=== PATIENT | female | born 1945 | race Caucasian/White ===

== ENCOUNTER 2017-06-30 09:08 | Outpatient (CLI) | payer BC | END 2017-06-30 09:09 | disposition home or self-care (01) | LOC: BICMAMMO 09:08 | PROVIDERS: ATTEND Family Medicine | DX: Z12.31 Encounter for screening mammogram for malignant neoplasm of breast (principal); Z80.3 Family history of malignant neoplasm of breast | CPT/HCPCS: 77063; 77067 ==

== ENCOUNTER 2018-07-09 13:43 | Outpatient (CLI) | payer BC ==
--- NOTE | 2018-07-09 18:23 | MMO ---
Bilateral MAMMO Bilat Screen DDI+FANI. CLINICAL HISTORY: Patient is 73 years old and is seen for screening. The patient has the following family history of breast cancer: mother, at age 75. The patient has no personal history of cancer. VIEWS: The views performed were: bilateral craniocaudal with tomosynthesis and bilateral mediolateral oblique with tomosynthesis. FILMS COMPARED: The present examination has been compared to prior imaging studies performed at [facility] on 06/30/2017, and at [facility] on 11/02/2010, 11/08/2011, 01/13/2013, 04/08/2014, 04/25/2015 and 05/17/2016. MAMMOGRAM FINDINGS: There are scattered fibroglandular densities. There are no suspicious masses, calcifications or areas of architectural distortion. IMPRESSION: THERE IS NO MAMMOGRAPHIC EVIDENCE OF MALIGNANCY. A ROUTINE FOLLOW-UP MAMMOGRAM IN 1 YEAR IS RECOMMENDED. THE RESULTS OF THIS EXAM WERE SENT TO THE PATIENT. ACR BI-RADS Category 1 - Negative MAMMOGRAPHY NOTE: 1. A negative mammogram report should not delay a biopsy if a dominant of clinically suspicious mass is present. 2. Approximately 10% to 15% of breast cancers are not detected by mammography. 3. Adenosis and dense breasts may obscure an underlying neoplasm.
== END 2018-07-09 13:44 | disposition home or self-care (01) ==
LOC: BICMAMMO 13:43
PROVIDERS: ATTEND Family Medicine
DX: Z12.31 Encounter for screening mammogram for malignant neoplasm of breast (principal); Z80.3 Family history of malignant neoplasm of breast
CPT/HCPCS: 77063; 77067

== ENCOUNTER 2019-03-14 17:47 | Emergency (ER) | payer BC ==
[~2019-03-14 17:47] MED LIST: Iopamidol 300 61% 100 ML VIAL FS ONE
--- NOTE | 2019-03-14 18:30 | RAD ---
PORTABLE CHEST ONE VIEW: Date: 03-14-19 Time: 6:12 p.m. History: Syncope. Nausea. Vomiting. FINDINGS: The heart size is normal. The lungs are expanded without focal areas of consolidation, pneumothoraces , or pleural effusions. There are tiny calcified granulomas. There is evidence of old granulomatous d isease. IMPRESSION: No acute process. POS: [facility]
[2019-03-14 18:47] LABS: Hemoglobin 13.3 g/dL (12.0-16.0); Mean Corpuscular HGB CONC 32.1 g/dL (32.0-36.0); Mean Corpuscular Hemoglobin 28.3 pg (27.0-31.0); Mean Corpuscular Volume 88.1 fL (78.0-98.0); Platelet Count 317 thou/uL (130-400); RBC Distribution Width 12.8 % (11.5-14.5); Red Blood Cell (RBC) Count 4.71 mill/uL (4.20-5.40); White Blood Cell (WBC) Count 21.7 thou/uL (4.8-10.8)
[2019-03-14 18:58] LABS: Band 2 % (5-11); Eosinophils 2 % (0-10); Lymphocytes 8 % (21-51); MDiff Complete? YES; Monocytes 5 % (0-10); Neutrophil 82 % (42-75); Platelet Morphology Comment Appears Adequate; RBC Morphology Normal
[2019-03-14 19:00] LABS: ALT (SGPT) 13 U/L (8-55); AST (SGOT) 18 U/L (5-34); Alkaline Phosphatase 143 U/L (40-110); Anion Gap 20 mmol/L (10-20); BUN (Urea Nitrogen) 21 mg/dL (9.8-20.1); Bilirubin, Total 0.5 mg/dL (0.2-1.2); Calc. Creatinine Clearance 0 mL/min (70-130); Carbon Dioxide 26 mmol/L (23-31); Chloride 99 mmol/L (98-107); Estimated GFR-MDRD 37; Globulin 2.5 g/dL (2.4-3.5); Glucose 122 mg/dL (83-110); Potassium 4.5 mmol/L (3.5-5.1); Protein, Total 6.5 g/dL (6.0-8.3); Sodium 140 mmol/L (136-145)
[2019-03-14 19:14] LABS: Bilirubin Moderate (Negative); Blood, Urine Trace (Negative); Glucose, Urine (Dipstick) Negative (Negative); Leukocyte Negative (Negative); Nitrite Negative (Negative); Protein, Urine (Dipstick) 30 mg/dL (Neg-Trace)
[2019-03-14 19:15] LABS: Clarity Hazy (Clear)
[2019-03-14 19:17] LABS: Bacteria/HPF 1+ HPF (None Seen); RBC/HPF 0-3 HPF (0-3); WBC/HPF None Seen HPF (0-3)
--- NOTE | 2019-03-14 19:32 | CT ---
HEAD CT WITHOUT CONTRAST: History: Syncope. Nausea, vomiting, fatigue. Trauma. FINDINGS: No parenchymal hemorrhage. No extraaxial hematoma. No midline shift. Basilar cisterns are patent. Brain volume is age appropriate. Cortical bates white matter differentiation is preserved. No hydrocephalus. There is a left periorbital/temporal scalp hematoma. Visualized orbits are unremarkable. Adequate aeration of the visualized paranasal sinuses and mastoid air cells. There does not appear to be a calvarial or lateral left orbital wall fracture. IMPRESSION: 1. Left periorbital/left temporal scalp hematoma. 2. No intracranial post-traumatic sequellae. POS: [facility]
--- NOTE | 2019-03-14 21:02 | CT ---
ABDOMEN CT WITH CONTRAST PELVIC CT WITH CONTRAST: History: Nausea, vomiting. Comparison: None. FINDINGS: ABDOMEN CT: Lung bases are clear. Normal heart size. Visualized aorta is of normal caliber. No periaortic fat stranding. Gallbladder is surgically absent. Portal vein is patent. Liver, spleen, pancreas, and adrenal glands have appropriate attenuation and enhancement. No gastric hepatic, retrocrural or periportal lymphadenopathy. Symmetric enhancement of the kidneys. Bilaterally, no obstructive uropathy. No mesenteric mass, free air, or free fluid. There is evidence of mild nonspecific mesenteric fat str anding along with enlarged mesenteric lymph nodes. Land Appraiser enlarged lymph nodes in the left lo wer quadrant measure 0.7 x 0.6 cm. Correlate for mesenteric lymphadenitis. Limited evaluation of the alimentary canal by the lack of oral contrast. There are some fluid filled loops of small bowel along with mildly distended small bowel loops predominately in the left hemiabdo men. Correlate for early or partial obstructive process versus ileus. Ileocecal junction is unremarka ble. Appendix is not appreciated. No inflammation of the thecal apex. There is fluid attenuation thro ughout the right hemicolon. Correlate for possible colitis. Scattered diverticulum in the sigmoid col on. No evidence of diverticulitis. Fluid attenuation is noted of the mid to distal sigmoid colon. CT PELVIS: Surgically absent uterus. No pelvic mass, lymphadenopathy, or free air. Trace amount of free fluid in the pelvis. There are no lytic or blastic lesions in the osseous structures. IMPRESSION: 1. Correlate for ileus or partial small bowel obstruction. Continued surveillance is recommended. 2. Fluid attenuation in the colon as described above. The possibility of colitis is raised. 3. Stranding of the abdominal mesentery with enlarged lymph nodes. Correlate for mesenteric lymphaden itis. POS: [facility]
== END 2019-03-14 20:53 | disposition home or self-care (01) ==
LOC: SCSER 17:47
DX: E86.0 Dehydration (principal); R55 Syncope and collapse; K52.9 Noninfective gastroenteritis and colitis, unspecified; E03.9 Hypothyroidism, unspecified; I10 Essential (primary) hypertension; Z79.899 Other long term (current) drug therapy
CPT/HCPCS: 70450; 71045; 74177; 80053; 81003; 81015; 84484; 85025; 93005; Q9967

== ENCOUNTER 2019-06-08 21:15 | Observation (INO) | payer BC ==
[2019-06-08 21:47] LABS: #Basophils 0.1 thou/uL (0.0-0.2); #Lymphocytes 1.8 thou/uL (1.20-3.40); #Monocytes 0.8 thou/uL (0.11-0.59); #Neutrophils 7.9 thou/uL (1.40-6.50); %Basophils 0.8 % (0.0-1.0); %Eosinophils 0.4 % (0.0-10.0); %Lymphocytes 16.6 % (21.0-51.0); %Monocytes 7.4 % (0.0-10.0); %Neutrophils 74.8 % (42.0-75.0); Hemoglobin 11.5 g/dL (12.0-16.0); Mean Corpuscular HGB CONC 32.8 g/dL (32.0-36.0); Mean Corpuscular Hemoglobin 29.4 pg (27.0-31.0); Mean Corpuscular Volume 89.5 fL (78.0-98.0); Mean Platelet Volume 7.3 fL (7.4-10.4); Platelet Count 257 thou/uL (130-400); RBC Distribution Width 12.8 % (11.5-14.5); Red Blood Cell (RBC) Count 3.92 mill/uL (4.20-5.40); White Blood Cell (WBC) Count 10.6 thou/uL (4.8-10.8)
[2019-06-08 21:59] LABS: Bacteria/HPF None Seen HPF (None Seen); Bilirubin Negative (Negative); Blood, Urine Trace (Negative); Clarity Clear (Clear); Glucose, Urine (Dipstick) Normal (Negative); Leukocyte Negative Leu/uL (Negative); Nitrite Negative (Negative); Protein, Urine (Dipstick) Negative (Neg-Trace); RBC/HPF 0-3 HPF (0-3); Squamous Epithelial None Seen HPF (0-3); Urobilinogen Normal mg/dL (Less than 2); WBC/HPF 0-3 HPF (0-3)
[2019-06-08 22:10] LABS: ALT (SGPT) 10 U/L (8-55); AST (SGOT) 14 U/L (5-34); Albumin 4.2 g/dL (3.4-4.8); Alkaline Phosphatase 88 U/L (40-110); Anion Gap 12 mmol/L (10-20); BUN (Urea Nitrogen) 20 mg/dL (9.8-20.1); Bilirubin, Total 0.2 mg/dL (0.2-1.2); Calc. Creatinine Clearance 0 mL/min (70-130); Calcium 8.1 mg/dL (7.8-10.44); Carbon Dioxide 27 mmol/L (23-31); Chloride 101 mmol/L (98-107); Estimated GFR-MDRD 43; Globulin 2.7 g/dL (2.4-3.5); Glucose 114 mg/dL (83-110); Lipase 20 U/L (8-78); Potassium 3.6 mmol/L (3.5-5.1); Protein, Total 6.9 g/dL (6.0-8.3); Sodium 136 mmol/L (136-145)
--- NOTE | 2019-06-08 22:27 | RAD ---
Chest AP view INDICATION: Chest pain COMPARISON: March 14, 2019 FINDINGS: Lungs:The lungs are clear. Stable calcified granuloma in the right lower lobe. Cardiac silhouette:The cardiomediastinal silhouette appears within normal limits. Pulmonary vasculature:Normal Pleural spaces:No pleural effusion or pneumothorax is demonstrated. Upper abdomen:No abnormality seen. Osseous structures: No acute osseous abnormality. Additional findings:None. IMPRESSION: No acute cardiopulmonary abnormality.
[2019-06-08] MEDS ORDERED: Aspirin Chewable 81 MG TAB ONE (23:25)
[2019-06-09] MEDS ORDERED: Calcium Carbonate 500 MG ChewTAB PO PRN (01:38)
[2019-06-09] MEDS ORDERED: Acetaminophen 325 MG TAB PO PRN (01:38)
[2019-06-09 01:54] LABS: Troponin I Less than 0.010 ng/mL (< 0.028)
[2019-06-09] MEDS ORDERED: Temazepam 15 MG CAP PO PRN (01:55)
--- NOTE | 2019-06-09 02:00 | PDOC.FPRHP ---
- History of Present Illness Chief Complaint: chest burning sensation History of Present Illness: 74yo CF with h/o HTN presented to ED with cc of burning sensation over chest and L arm. Pt states she has chronic cough and treated for bronchitis with symbicort and phenergan with codeine prn. She took her symbicort and cough syrup today and immediately had a tingling and hot sensation on her tongue. This then moved down into her chest. The sensation then turned into a cold feeling that moved down her L arm. No associated n/v, dyspnea, fever/chills. Does not describe the sensation as pain. Pt states she had similar episode in Feb 2019 after taking some medications, at that time had nausea and passed out. Was evaluated at the [facility] with Head CT, EKG , and determine to have syncopal event and discharged from ED. Currently denies any return of sxs. Total sxs lasted approx 30 min. ED Course: Given ASA 324. 1L NS. Admitted for ACS r/o - Allergies/Adverse Reactions Allergies Allergy/AdvReac Type Severity Reaction Status Date / Time naproxen Allergy Verified 06/09/19 01:19 Sulfa (Sulfonamide Allergy Verified 06/09/19 01:19 Antibiotics) - Home Medications Medication Instructions Recorded Confirmed Type Amlodipine [Norvasc] 10 mg PO DAILY 06/09/19 06/09/19 History Ascorbic Acid [Vitamin C] 500 mg PO DAILY 30 Days #30 tab 06/09/19 Rx Aspirin [Ecotrin Regular Strength] 325 mg PO DAILY 30 Days #30 tab 06/09/19 Rx Atorvastatin Calcium [Lipitor] 20 mg PO HS 30 Days #30 tab 06/09/19 Rx Benzonatate [Tessalon] 100 mg PO TID PRN 10 Days #30 cap 06/09/19 Rx Budesonide-Formoterol [Symbicort 1 puff INH BID PRN 06/09/19 06/09/19 History 80-4.5] Cetirizine HCl [Zyrtec] 10 mg PO DAILY 06/09/19 06/09/19 History Cholecalciferol (Vitamin D3) 2,000 unit PO DAILY 06/09/19 06/09/19 History [Vitamin D3] Ferrous Sulfate [Feosol] 325 mg PO QAM-WM 30 Days #30 tab 06/09/19 Rx Fluticasone Propionate [Flonase 1 spray EA NARE DAILY 06/09/19 06/09/19 History Nasal [place]] Levothyroxine Sodium [Synthroid] 88 mcg PO DAILY 06/09/19 06/09/19 History Lisinopril 20 mg PO BID 06/09/19 06/09/19 History Promethazine HCl/Codeine 5 ml PO TID PRN 06/09/19 06/09/19 History [Prometh-Codein 6.25-10 mg/5 ml] Raloxifene HCl 60 mg PO DAILY 06/09/19 06/09/19 History Temazepam [Restoril] 15 mg PO HS PRN 06/09/19 06/09/19 History - History PMHx: HTN, Michael's PSHx: Subtotal thyroidectomy, hyst, coty, appey, lumpectomy of R breast - benign FHx: Mother of GA at 83, father with DM Social: , of GA. No EtOH, illicits, tob. Lives alone. - Review of Systems General: denies: fever/chills, weight/appetite/sleep changes, night sweats Eyes: denies: vision changes ENT: denies: nasal congestion, rhinorrhea Respiratory: reports: cough (chronic). denies: congestion, shortness of breath Cardiovascular: reports: other (per HPI). denies: chest pain, palpitation, edema Gastrointestinal: denies: nausea, vomiting, diarrhea, constipation, abdominal pain Genitourinary: denies: incontinence, dysuria Skin: denies: rashes Musculoskeletal: denies: pain Neurological: denies: numbness, syncope - Vital signs BP: 140/68 HR: 75 RR: 18 Tmax: 97.7 Pox: 98% on RA Wt: 78kg - Physical Exam Constitutional: NAD, awake, alert and oriented, well developed HEENT: PERRLA, EOMI, conjunctiva clear, MMM Neck: supple, trachea midline Heart: RRR, normal S1/S2, pulses present, no edema, other (1/6 TEETEE best heard right upper sternal border) Lungs: CTAB, no respiratory distress, good air movement, no rales/rhonchi, no wheezing Abdomen: soft, non-tender, bowel sounds present, no masses/distention Musculoskeletal: normal structure Neurological: no focal deficit Skin: no rash/lesions Psychiatric: normal mood and affect, good judgment and insight, intact recent and remote memory FMR H&P: Results - Labs Result Diagrams: 06/08/19 21:45 06/09/19 04:39 Lab results: WBC 10.6 thou/uL (4.8-10.8) 06/08/19 21:45 Hgb 11.5 g/dL (12.0-16.0) L 06/08/19 21:45 Hct 35.1 % (36.0-47.0) L 06/08/19 21:45 MCV 89.5 fL (78.0-98.0) 06/08/19 21:45 Plt Count 257 thou/uL (130-400) 06/08/19 21:45 Neutrophils % 74.8 % (42.0-75.0) 06/08/19 21:45 Sodium 136 mmol/L (136-145) 06/08/19 21:37 Potassium 3.6 mmol/L (3.5-5.1) 06/08/19 21:37 Chloride 101 mmol/L (98-107) 06/08/19 21:37 Carbon Dioxide 27 mmol/L (23-31) 06/08/19 21:37 BUN 20 mg/dL (9.8-20.1) 06/08/19 21:37 Creatinine 1.23 mg/dL (0.6-1.1) H 06/08/19 21:37 Glucose 114 mg/dL (83-110) H 06/08/19 21:37 Calcium 8.1 mg/dL (7.8-10.44) 06/08/19 21:37 Total Bilirubin 0.2 mg/dL (0.2-1.2) 06/08/19 21:37 AST 14 U/L (5-34) 06/08/19 21:37 ALT 10 U/L (8-55) 06/08/19 21:37 Alkaline Phosphatase 88 U/L (40-110) 06/08/19 21:37 Serum Total Protein 6.9 g/dL (6.0-8.3) 06/08/19 21:37 Albumin 4.2 g/dL (3.4-4.8) 06/08/19 21:37 Lipase 20 U/L (8-78) 06/08/19 21:37 Urine Ketones Negative mg/dL (Negative) 06/08/19 21:44 Urine Blood Trace (Negative) A 06/08/19 21:44 Urine Nitrite Negative (Negative) 06/08/19 21:44 Ur Leukocyte Esterase Negative Nick/uL (Negative) 06/08/19 21:44 Urine RBC 0-3 HPF (0-3) 06/08/19 21:44 Urine WBC 0-3 HPF (0-3) 06/08/19 21:44 Ur Squamous Epith Cells None Seen HPF (0-3) 06/08/19 21:44 Urine Bacteria None Seen HPF (None Seen) 06/08/19 21:44 - EKG Interpretation EKG: NSR. normal intervals, normal R wave progression. No acute ST or T wave changes. - Radiology Interpretation Chest x-ray Status: report reviewed by me (no acute CPP) FMR H&P: A/P - Problem List (1) Chest pain Status: Acute Code(s): R07.9 - CHEST PAIN, UNSPECIFIED (2) HTN (hypertension) Status: Chronic Code(s): I10 - ESSENTIAL (PRIMARY) HYPERTENSION Qualifiers: Hypertension type: essential hypertension Qualified Code(s): I10 - Essential (primary) hypertension (3) Hypothyroidism Status: Chronic Code(s): E03.9 - HYPOTHYROIDISM, UNSPECIFIED Qualifiers: Hypothyroidism type: postoperative Qualified Code(s): E89.0 - Postprocedural hypothyroidism - Plan 74yo CF with h/o HTN and hypothyroidism presents for chest burning sensation, admitted for ACS r/o #Chest burning sensation, ACS r/o - Occurred after medication use of Symbicort + phenergan with codeine - no associated pain, dyspnea, n/v - Heart score 3 - age and HTN - EKG WNL and trops negative x1, will trend trops and monitor on tele - suspected medication adverse effect - Records reviewed, recent lipid panel with LDL >100 and TC >180 - ASCVD 19.7%, still start atorva 20mg daily - recent TSH WNL, will check A1C for risk stratification - due to risk factors and no previous w/o, will plan for exercise stress in AM #CKD III - Cr 1.23, records reviewed and last Cr 1.0 - suspect CKD III 2/2 chronic HTN - will monitor #Anemia - Hb 11.5, records reviewed and stable - normocytic anemia - suspect anemia of chronic disease, will order iron studies and b12 #Chronic cough - given diagnosis of chronic bronchitis - could be 2/2 lisinopril SE, consider change to ARB #HTN - cont home norvasc and lisinopril, consider change to ARB as above #Hypothyroidism - cont home levo 88mcg PCP: Andrew Code: Full IVF: SL Diet: NPO for stress VTE: SCDs Disposition/LOS: Admit to tele obs for ACS r/o. Trend trops, monitor on tele, plan for AM stress and risk stratify. Anticipate hospitalization < 48hrs. FMR H&P: Upper Level - Pertinent history 74 year old female presents to ED with cold/hot feeling which started in her left chest and went down her left arm after taking a combination of phenergan, codeine, and symbicort this afternoon prior to arrival. Patient states this has happened once before in February after taking the same combination of medications. She had a syncopal episode at that time and was seen at in [place]. She was told she had a syncopal episode and sent home. She states she had some N/V with that event. Patient denies chest pain, shortness of breath, or diaphoresis. She states that her mother from an GA at the age of 82. Her recently from heart problems, and patient is worried she has heart issues. She has HLD and HTN. She is being treated for HTN. Patient with intermittent cough over the last year. Patient states she gets spells from time to time, but they generally resolve. - Pertinent findings General: Alert and oriented x3. No acute distress. HEENT: MMM. Card: RRR. No appreciable murmur. Resp: CTA bilaterally, no acute respiratory distress. Abd: Soft, non-tender, non-distended Ext: No cyanosis or edema Skin: Warm and dry - Plan Date/Time: 06/09/19 0200 IMayte, have evaluated this patient and agree with findings/plan as outlined by electrical intern resident. Pertinent changes/additions are listed here. Atypical chest pain -Likely related to medication use -Exercise stress test in AM; discussed with patient, she does not think she will have any difficulties with exercise stress test, but can switch to cardiolite stress test if unable to tolerate exercise stress test. -HEART score of 3 -EKG NSR -Trop neg x2, third trop pending -Nitro PRN -EKG, trop if chest pain returns -Risk stratify: HgA1c, Mg, P; recently had TSH and FLP HLD -ASCVD score of 24% based on labs done in February -Patient not currently on statin, will start moderate intensity statin and increase dose as tolerated HTN -Current treatment with lisinopril and norvasc Suspect CKD -GFR 43 today, Cr 1.23 -Last visit, GFR 56, Cr 1.06 (not an increase by 0.3) Normocytic anemia -Iron studies and B12/folate pending Hypothyroidism s/p thyroidectomy -Continue levothyroxine Insomnia -Continue home medication Hx of hysterectomy on Raloxifine -On SERM for many years, has not had discussion with PCP about discontinuing -Patient denies history of osteoporosis DVT PPX: SCD's Dispo: Obs on telemetry. Anticipate LOS <48 hours. Addendum - Attending - Attending Attestation Date/Time: 06/09/19 [id number] I personally evaluated the patient and discussed the management with Dr. Puckett I agree with the History, Examination, Assessment and Plan documented above with any addition or exceptions noted below. 74 yo WF PMH HTN. 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 C/O cough that has been present for several months. Started on KATLYN inhibitor last fall a few months before the cough started. Has had several near syncopal episodes during this time. Exam unremarkable. Trop neg x3. EKG negative x2. She underwent an exercise stress test which was normal. Recommended d/c of lisinopril and switch to ARB but she wanted to wait and talk to PCP. D/C home. RTC precautions given. Anemia apperas to be related to chronic disease. F/U outpatient.
[2019-06-09 05:03] LABS: Hemoglobin A1c 5.4 % (4.0-6.0)
[2019-06-09 05:27] LABS: Anion Gap 11 mmol/L (10-20); BUN (Urea Nitrogen) 17 mg/dL (9.8-20.1); Calc. Creatinine Clearance 0 mL/min (70-130); Calcium 7.8 mg/dL (7.8-10.44); Carbon Dioxide 25 mmol/L (23-31); Chloride 109 mmol/L (98-107); Estimated GFR-MDRD 65; Glucose 101 mg/dL (83-110); Iron Binding Capacity, Total 245 mcg/dL (265-497); Potassium 4.1 mmol/L (3.5-5.1); Sodium 141 mmol/L (136-145)
[2019-06-09 05:31] VITALS: BMI 29.7
[2019-06-09 05:32] LABS: Troponin I Less than 0.010 ng/mL (< 0.028)
[2019-06-09 05:46] LABS: Ferritin 77.16 ng/mL (10-291)
[2019-06-09] MEDS ORDERED: Levothyroxine Sodium 88 MCG TAB PO SCH (06:00)
--- NOTE | 2019-06-09 06:00 | PDOC.FM ---
- Objective MAR Reviewed: Yes Vital Signs & Weight: Vital Signs (12 hours) Temp Pulse Resp BP Pulse Ox 06/09/19 03:42 98.2 F 69 16 130/61 99 06/09/19 01:05 97.9 F 79 18 155/67 H 99 Weight Weight 81.148 kg I&O: 06/07/19 06/08/19 06/09/19 06:59 06:59 06:59 Intake Total 75 Output Total 800 Balance -725 Result Diagrams: 06/08/19 21:45 06/09/19 04:39 Dx/Plan - Plan Plan: 74yo CF with h/o HTN and hypothyroidism presents for chest burning sensation, admitted for ACS r/o 1. Chest burning sensation, ACS r/o * Occurred after medication use of Symbicort + phenergan with codeine * no associated pain, dyspnea, n/v * Heart score 3 - age and HTN * EKG WNL and trops negative x3 * monitor on tele * suspected medication adverse effect * Records reviewed, recent lipid panel with LDL >100 and TC >180 * ASCVD 19.7%, still start atorva 20mg daily * recent TSH WNL, A1C: 5.4% * Stress today 2. CKD III * Cr 1.22, records reviewed and last Cr 1.0 * suspect CKD III 2/2 chronic HTN * will monitor 3. Anemia * Hb 11.5, records reviewed and stable * normocytic anemia * suspect anemia of chronic disease, will order iron studies and b12 4. Chronic cough * given diagnosis of chronic bronchitis * could be 2/2 lisinopril SE, consider change to ARB 5. HTN * cont home norvasc and lisinopril, consider change to ARB as above 6. Hypothyroidism * cont home levo 88mcg PCP: Andrew Code: Full IVF: SL Diet: NPO for stress VTE: SCDs Disposition/LOS: Admit to tele obs for ACS r/o. Stress today and f/u with results. Anticipate hospitalization < 48hrs.
[2019-06-09] MEDS ORDERED: Aspirin 325 mg Enteric Coated Tablet PO SCH (09:00)
[2019-06-09] MEDS ORDERED: Amlodipine 10 MG TAB PO SCH (09:00)
[2019-06-09] MEDS ORDERED: Cetirizine HCl 10 MG TAB PO SCH (09:00)
[2019-06-09] MEDS ORDERED: Lisinopril 20 MG TAB PO SCH (09:00)
[2019-06-09] MEDS ORDERED: Loratadine 10 MG TAB PO SCH (09:00)
[2019-06-09 12:26] VITALS: BP 133/63; TEMP 98.3
[2019-06-09] MEDS ORDERED: Atorvastatin Calcium 20 MG TAB PO SCH (21:00)
[2019-06-10] MEDS ORDERED: Ferrous Sulfate 325 MG TAB PO SCH (08:00)
[2019-06-10] MEDS ORDERED: Ascorbic Acid 500 mg Chewable Tablet PO SCH (09:00)
--- NOTE | 2019-06-11 12:40 | DIS ---
DATE OF ADMISSION: 06/09/2019 DATE OF DISCHARGE: 06/09/2019 RESIDENT: Demond Puckett MD ADMITTING ATTENDING: Claire Trujillo MD DISCHARGE ATTENDING: Jagdeep Maciel MD CONSULT: None. PROCEDURES: Chest x-ray, 06/08/2019, showed no acute cardiopulmonary abnormality. PROCEDURES: Stress test that was normal on 06/09/2019. PRIMARY DIAGNOSES: 1. Chest pain. 2. Chronic kidney disease, stage 3. 3. Anemia. SECONDARY DIAGNOSES: 1. Chronic cough. 2. Hypertension. 3. Hypothyroidism. DISCHARGE MEDICATION: 1. Vitamin C 500 mg daily. 2. Aspirin 325 mg daily. 3. Lipitor 20 mg at bedtime, 30 days. 4. Tessalon Perles 100 mg p.o. t.i.d. for 10 days. 5. Iron 325 q.a.m. for 30 days. Discontinued medications: 1. Aspirin 81 mg. 2. Tylenol. 3. Tums. 4. Claritin. HISTORY OF PRESENT ILLNESS: A 74-year-old female with history of hypertension, presented to the ED with complaints of burning sensation over chest and left arm. Patient states she has chronic cough and treated for bronchitis with Symbicort and Phenergan with Codeine p.r.n. She took her Symbicort and cough started today and immediately had a tingling and hot sensation on her tongue. This then moved down into her chest. The sensation then turned into a cold feeling that moved down her left arm. No associated nausea, vomiting, dyspnea, , shortness of breath, fever, or chills. Does not describe the sensation as pain. Patient states she had similar episode in February of 2019 after taking similar medications at that time. She had nausea and passed out. Was evaluated at [facility] with head CT, EKG, and determined to have syncopal event and discharged from ED. Currently, denies any return of symptoms. Total symptoms lasted approximately 30 minutes. In the ED, she was given aspirin 324, 1 L of normal saline and admitted for ACS rule out. 1. Chest pain with burning sensation, ACS rule out. Chronic GERD after medication use of Symbicort plus Phenergan with Codeine. No associated pain, shortness of breath, nausea, or vomiting. * HEART score of 3 due to age and hypertension. * EKG within normal limits. Troponins were negative. * Records reviewed. Recent lipid panel showed LDL less than 100 and total cholesterol of 180. * ASCVD is 19.7%, so she was started on atorvastatin 20 mg daily. * Recommend increasing to 40 mg daily, start on a low dose to see how well she tolerates that. * Recent TSH within normal limits. A1c was 5.4%. * Stress was performed and found to show no ischemia. * Discharged with aspirin. 2. CKD, stage 3. * Creatinine of 1.2. * Records reviewed and last creatinine was 1.0. * Suspect CKD, stage 3 secondary to chronic hypertension. * Creatinine prior to discharge was 0.86. 3. Anemia Hemoglobin 11.5. Records reviewed and stable. * Normocytic anemia. * Iron studies performed and showed slight iron deficiency, vitamin C and iron treatment. 4. Chronic cough given diagnosis of chronic bronchitis. * Could be secondary to lisinopril. * Consider changing to an ARB. We tried to change this during hospital stay. The patient would like to speak to her PCP before changing medications. 5. Hypertension. * Continue home Norvasc and lisinopril. * Consider change to ARB as above. 6. Hypothyroidism. * Continue home levothyroxine of 88 mcg. DISPOSITION: Stable. DISCHARGE INSTRUCTIONS: 1. Location. Home. 2. Diet. Heart healthy, low-sodium. 3. Activity: As tolerated. 4. Followup: With PCP Dr. Morales in 7 days. 5. Recommend possible Cardiology consult for Holter monitor to evaluate for possible causes of syncope/chest pain. Job ID: [id number] MTDD
--- NOTE | 2019-06-12 14:30 | EKG ---
Test Reason : Blood Pressure : / mmHG Vent. Rate : 075 BPM Atrial Rate : 075 BPM P-R Int : 156 ms QRS Dur : 088 ms QT Int : 396 ms P-R-T Axes : 033 055 038 degrees QTc Int : 442 ms Normal sinus rhythm Normal ECG #2 Confirmed by TALON Llanos, HAMLET ([id number]), editor managing newspaper NOE CHILD ([id number]) on 06/12/2019 2:29:56 PM Referred By: Confirmed By:HAMLET HANLEY M.D.
--- NOTE | 2019-06-12 14:30 | EKG ---
Test Reason : Blood Pressure : / mmHG Vent. Rate : 082 BPM Atrial Rate : 082 BPM P-R Int : 162 ms QRS Dur : 088 ms QT Int : 388 ms P-R-T Axes : 042 051 041 degrees QTc Int : 453 ms Normal sinus rhythm Possible Left atrial enlargement Borderline ECG Confirmed by HAMLET HANLEY M.D. ([id number]), editor map NOE CHILD ([id number]) on 06/12/2019 2:29:45 PM Referred By: Confirmed By:HAMLET HANLEY M.D.
== END 2019-06-09 14:40 | disposition home or self-care (01) ==
LOC: ERS 21:15 → 2SW 06-09 00:58
PROVIDERS: ADMIT Family Medicine; ATTEND Family Medicine
DX: R07.89 Other chest pain (principal); I12.9 Hypertensive chronic kidney disease with stage 1 through stage 4 chronic kidney disease, or unspecified chronic kidney disease; N18.3 Chronic kidney disease, stage 3 (moderate); D50.9 Iron deficiency anemia, unspecified; E89.0 Postprocedural hypothyroidism; E06.3 Autoimmune thyroiditis; J42 Unspecified chronic bronchitis; E78.5 Hyperlipidemia, unspecified; G47.00 Insomnia, unspecified; Z79.810 Long term (current) use of selective estrogen receptor modulators (SERMs); Z79.82 Long term (current) use of aspirin; Z79.899 Other long term (current) drug therapy; Z88.2 Allergy status to sulfonamides; Z88.6 Allergy status to analgesic agent; Z90.710 Acquired absence of both cervix and uterus
CPT/HCPCS: 36415; 71045; 80048; 80053; 81003; 81015; 82607; 82728; 83036; 83540; 83550; 83690; 84443; 84484; 85025; 93005; 93010; 93017; 96360; G0378

== ENCOUNTER 2020-02-14 13:54 | Outpatient (CLI) | payer BC ==
--- NOTE | 2020-02-14 14:32 | MMO ---
Bilateral MAMMO Bilat Screen DDI+FANI. CLINICAL HISTORY: Patient is 74 years old and is seen for screening. The patient has the following family history of breast cancer: mother, at age 75. The patient has no personal history of cancer. VIEWS: The views performed were: bilateral craniocaudal with tomosynthesis and bilateral mediolateral oblique with tomosynthesis. FILMS COMPARED: The present examination has been compared to prior imaging studies performed at [facility] on 06/30/2017 and 07/09/2018, and at [facility] on 04/25/2015 and 05/17/2016. This study has been interpreted with the assistance of computer-aided detection. MAMMOGRAM FINDINGS: The breasts are heterogeneously dense, which could obscure a lesion on mammography. There are no suspicious masses, suspicious calcifications, or new areas of architectural distortion. IMPRESSION: THERE IS NO MAMMOGRAPHIC EVIDENCE OF MALIGNANCY. A ROUTINE FOLLOW-UP MAMMOGRAM IN 1 YEAR IS RECOMMENDED. THE RESULTS OF THIS EXAM WERE SENT TO THE PATIENT. ACR BI-RADS Category 1 - Negative MAMMOGRAPHY NOTE: 1. A negative mammogram report should not delay a biopsy if a dominant of clinically suspicious mass is present. 2. Approximately 10% to 15% of breast cancers are not detected by mammography. 3. Adenosis and dense breasts may obscure an underlying neoplasm. Reported by: RANDY KAUFMAN MD Electonically Signed: [id number]
== END 2020-02-14 13:55 | disposition home or self-care (01) ==
LOC: BICMAMMO 13:54
PROVIDERS: ATTEND Family Medicine
DX: Z12.31 Encounter for screening mammogram for malignant neoplasm of breast (principal); Z80.3 Family history of malignant neoplasm of breast
CPT/HCPCS: 77063; 77067

== ENCOUNTER 2020-08-15 03:17 | Emergency (ER) | payer BC ==
[2020-08-15] MEDS ORDERED: Mag-Al 1200 mg/1200 mg/30 ML UDCUP ONE (03:42)
[2020-08-15] MEDS ORDERED: Lidocaine Viscous Sol 2% 15 ml UD Cup ONE (03:42)
[2020-08-15 03:54] LABS: #Basophils 0.1 thou/uL (0.0-0.2); #Lymphocytes 1.9 thou/uL (1.20-3.40); #Monocytes 0.7 thou/uL (0.11-0.59); #Neutrophils 7.6 thou/uL (1.40-6.50); %Basophils 0.6 % (0.0-1.0); %Eosinophils 0.2 % (0.0-10.0); %Lymphocytes 18.8 % (21.0-51.0); %Monocytes 6.5 % (0.0-10.0); %Neutrophils 73.9 % (42.0-75.0); Hemoglobin 11.8 g/dL (12.0-16.0); Mean Corpuscular HGB CONC 32.9 g/dL (32.0-36.0); Mean Corpuscular Hemoglobin 29.1 pg (27.0-31.0); Mean Corpuscular Volume 88.6 fL (78.0-98.0); Platelet Count 291 thou/uL (130-400); RBC Distribution Width 12.2 % (11.5-14.5); Red Blood Cell (RBC) Count 4.06 mill/uL (4.20-5.40); White Blood Cell (WBC) Count 10.3 thou/uL (4.8-10.8)
[2020-08-15 04:16] LABS: ALT (SGPT) 7 U/L (8-55); AST (SGOT) 12 U/L (5-34); Albumin 3.9 g/dL (3.4-4.8); Alkaline Phosphatase 74 U/L (40-110); Anion Gap 11 mmol/L (10-20); BUN (Urea Nitrogen) 8 mg/dL (9.8-20.1); Bilirubin, Total 0.4 mg/dL (0.2-1.2); Calc. Creatinine Clearance 0 mL/min (70-130); Calcium 9.3 mg/dL (7.8-10.44); Carbon Dioxide 26 mmol/L (23-31); Chloride 96 mmol/L (98-107); Globulin 2.6 g/dL (2.4-3.5); Glucose 117 mg/dL (83-110); Lipase 18 U/L (8-78); Protein, Total 6.5 g/dL (5.8-8.1); Sodium 129 mmol/L (136-145)
[2020-08-15 05:10] LABS: Bilirubin Negative (Negative); Blood, Urine Negative (Negative); Clarity Clear (Clear); Glucose, Urine (Dipstick) Normal (Negative); Ketone, Urine Negative (Negative); Leukocyte Negative Leu/uL (Negative); Nitrite Negative (Negative); Protein, Urine (Dipstick) Negative (Neg-Trace); Specific Gravity, Urine 1.002 (1.002-1.036); Urobilinogen Normal mg/dL (Less than 2)
[2020-08-15] MEDS ORDERED: Iopamidol-370 76% 500 ML 1 ML ONE (09:07)
== END 2020-08-15 05:56 | disposition home or self-care (01) ==
LOC: ERS 03:17
DX: K29.70 Gastritis, unspecified, without bleeding (principal); I10 Essential (primary) hypertension; E03.9 Hypothyroidism, unspecified; Z79.899 Other long term (current) drug therapy
CPT/HCPCS: 36415; 71045; 74177; 80053; 81003; 83690; 84484; 85025; 93005; 94760; Q9967

== ENCOUNTER 2021-03-30 15:20 | Outpatient (CLI) | payer BC | END 2021-03-30 15:21 | disposition home or self-care (01) | LOC: BICMAMMO 15:20 | PROVIDERS: ATTEND Family Medicine | DX: Z12.31 Encounter for screening mammogram for malignant neoplasm of breast (principal); Z80.3 Family history of malignant neoplasm of breast | CPT/HCPCS: 77063; 77067 ==

== ENCOUNTER 2022-04-10 07:54 | Outpatient (CLI) | payer BC | END 2022-04-10 07:55 | disposition home or self-care (01) | LOC: BICMAMMO 07:54 | PROVIDERS: ATTEND Family Medicine | DX: Z12.31 Encounter for screening mammogram for malignant neoplasm of breast (principal); Z91.89 Other specified personal risk factors, not elsewhere classified; Z80.3 Family history of malignant neoplasm of breast | CPT/HCPCS: 77063; 77067 ==

== ENCOUNTER 2023-06-26 12:06 | Outpatient (CLI) | payer BC | END 2023-06-26 12:07 | disposition home or self-care (01) | LOC: BICMAMMO 12:06 | PROVIDERS: ATTEND Family Medicine | DX: Z12.31 Encounter for screening mammogram for malignant neoplasm of breast (principal); Z80.3 Family history of malignant neoplasm of breast; Z91.89 Other specified personal risk factors, not elsewhere classified | CPT/HCPCS: 77063; 77067 ==